=== PATIENT | female | born 1980 | race Caucasian/White ===

== ENCOUNTER → 2021-07-25 12:01 | Outpatient (CLI) | payer OTHER, MEDICAID, SELFPAY | PROVIDERS: PCP Family Medicine; Visit Provider Physician Assistant | DX: J34.89 Other specified disorders of nose and nasal sinuses (principal) | CPT/HCPCS: 87070; 87077; 87147; 87185; 87186; 87205 ==

== ENCOUNTER → 2021-08-09 08:18 | Outpatient (CLI) | payer OTHER, MEDICAID, SELFPAY ==
[2021-08-09 20:44] LABS: COVID19 - ORCAS (NP or Nasal) Negative (Negative)
== END ==
PROVIDERS: PCP Family Medicine; Visit Provider Family Medicine
DX: Z01.812 Encounter for preprocedural laboratory examination (principal)
CPT/HCPCS: C9803; U0003

== ENCOUNTER → 2021-08-21 11:35 | Outpatient (CLI) | payer OTHER, MEDICAID, SELFPAY ==
[2021-08-21 19:25] LABS: Alanine Aminotransferase 10 IU/L (<35); Albumin 4.5 g/dL (3.5-5.0); Albumin Globulin Ratio 1.6 (1.0-2.8); Alkaline Phosphatase 38 U/L (38-126); Aspartate Aminotransferase 18 IU/L (14-36); Bilirubin Total 0.3 mg/dL (0.2-1.3); Blood Urea Nitrogen 9 mg/dL (7-17); Calcium 9.7 mg/dL (8.4-10.2); Carbon Dioxide 33 mmol/L (22-32); Chloride 103 mmol/L (98-107); Estimated Glomerular Filt Rate > 60.0 mL/min (>60); Globulin 2.9 g/dL (1.7-4.1); Glucose 83 mg/dL (70-100); HEMOLYSIS < 15 (0-50); Potassium 4.2 mmol/L (3.4-5.1); Sodium 142 mmol/L (137-145); Total Protein 7.4 g/dL (6.3-8.2)
[2021-08-21 19:26] LABS: Add Manual Diff / Slide Review NO; Basophils Absolute Auto 0 /uL (0-100); Eosinophils Absolute Auto 200 /uL (0-450); Eosinophils Percent Auto 4.9 % (2-4); Hematocrit 40.2 % (36-46); Hemoglobin 13.4 g/dL (12.0-16.0); Lymphocytes Absolute Auto 2100 /uL (1100-4500); Lymphocytes Percent Auto 44.5 % (25-40); Mean Corpuscular HGB Conc 33.3 % (30-36); Mean Corpuscular Hemoglobin 29.3 PG (26-34); Mean Corpuscular Volume 88.1 fL (80-100); Monocytes Absolute Auto 400 /uL (0-900); Monocytes Percent Auto 9.1 % (3-14); Neutrophils Absolute Auto 1900 /uL (1500-7000); Neutrophils Percent Auto 40.5 % (50-75); Platelet Count 305 X10^3/uL (150-400); Red Blood Cell Count 4.56 X10^6/uL (4.0-5.2); Red Cell Distribution Width 13.1 % (11.6-14.8); White Blood Cell Count 4.6 X10^3/uL (4.5-11.0)
[2021-08-21 19:29] LABS: C-Reactive Protein Quant < 0.5 mg/dL (<1.0)
[2021-08-21 19:41] LABS: Vitamin D 25 Hydroxy (D3) 38.2 ng/mL (30.0-100.0)
[2021-08-21 20:06] LABS: HIV 1 & 2 Ab/Ag 4th Gen Combo NEGATIVE (NEGATIVE)
[2021-08-21 20:10] LABS: Erythrocyte Sedimentation Rate 10 MM/HR (0-20)
== END ==
PROVIDERS: Internal Medicine Rheumatology; PCP Family Medicine; Visit Provider Physician Assistant
DX: J32.9 Chronic sinusitis, unspecified (principal); L40.50 Arthropathic psoriasis, unspecified; Z11.3 Encounter for screening for infections with a predominantly sexual mode of transmission; Z86.2 Personal history of diseases of the blood and blood-forming organs and certain disorders involving the immune mechanism
CPT/HCPCS: 80053; 82306; 85025; 85651; 86140; 87389

== ENCOUNTER → 2021-08-30 15:39 | Outpatient (CLI) | payer OTHER, MEDICAID, SELFPAY ==
--- NOTE | 2021-08-30 | DI.CT.S_ITS ---
PROCEDURE: CT SINUS SCREEN WO CON INDICATIONS: Other headache syndrome TECHNIQUE: Noncontrast 3.0 mm axial images acquired from the frontal sinuses to the mid-sella, with coronal and sagittal reformats. For radiation dose reduction, the following was used: automated exposure control, adjustment of mA and/or kV according to patient size. COMPARISON: None. FINDINGS: Image quality: Excellent. Maxillary Sinuses: No bony remodeling or destruction. Sinuses are clear. Ethmoid Air Cells: No bony remodeling or destruction. Sinuses are clear. Sphenoid Sinuses: No bony remodeling or destruction. Sinuses are clear. Frontal Sinuses: No bony remodeling or destruction. Sinuses are clear. Ostiomeatal Complexes: Ostiomeatal complexes are patent. No Kaitlynn cells. Miscellaneous: Visualized intra-orbital contents are normal. No ken bullosa or paradoxical turbinate curvature. No nasal septal deviation. IMPRESSION: No significant active paranasal sinus disease is seen. Dictated by: Sergio Snow M.D. on 08/30/2021 at 15:16 Approved by: Sergio Snow M.D. on 08/30/2021 at 15:17
== END ==
PROVIDERS: PCP Family Medicine; Referring Provider Otolaryngology; Visit Provider Otolaryngology
DX: G44.89 Other headache syndrome (principal)
CPT/HCPCS: 70486

== ENCOUNTER → 2021-10-16 12:07 | Outpatient (CLI) | payer OTHER, MEDICAID, SELFPAY ==
--- NOTE | 2021-10-16 12:08 | DI.CT.S_ITS ---
PROCEDURE: CT HEAD/BRAIN WO CON INDICATIONS: CHRONIC PROGRESSIVE HEADACHE TECHNIQUE: Noncontrast 4.5 mm thick angled axial sections acquired from the foramen magnum to the vertex, with coronal and sagittal reformats. For radiation dose reduction, the following was used: automated exposure control, adjustment of mA and/or kV according to patient size. COMPARISON: None. FINDINGS: Image quality: Excellent. CSF spaces: Basal cisterns are patent. No extra-axial fluid collections. Ventricles are normal in size and shape. Brain: No midline shift. No intracranial masses or hemorrhage. Valencia-white matter interface is normal. Skull and face: Calvarium and visualized facial bones are intact, without suspicious lesions. Sinuses: Visualized sinuses and mastoids are clear. IMPRESSION: Normal head CT. Dictated by: Reza Crain M.D. on 10/16/2021 at 13:20 Approved by: Reza Crain M.D. on 10/16/2021 at 13:21
== END ==
PROVIDERS: PCP Family Medicine; Referring Provider Family Medicine; Visit Provider Family Medicine
DX: R51.9 Headache, unspecified (principal); G89.29 Other chronic pain
CPT/HCPCS: 70450

== ENCOUNTER → 2022-01-17 09:05 | Outpatient (CLI) | payer OTHER, MEDICAID, SELFPAY | PROVIDERS: PCP Family Medicine; Visit Provider Physician Assistant | DX: L98.9 Disorder of the skin and subcutaneous tissue, unspecified (principal) | CPT/HCPCS: 87070; 87075; 87147; 87205 ==

== ENCOUNTER → 2022-04-15 11:54 | Outpatient (CLI) | payer OTHER, MEDICAID, SELFPAY ==
[2022-04-15 20:39] LABS: Add Manual Diff / Slide Review NO; Basophils Absolute Auto 0 /uL (0-100); Basophils Percent Auto 0.7 % (0-2); Eosinophils Absolute Auto 200 /uL (0-450); Eosinophils Percent Auto 2.6 % (2-4); Hematocrit 39.6 % (36-46); Hemoglobin 13.3 g/dL (12.0-16.0); Lymphocytes Absolute Auto 2000 /uL (1100-4500); Lymphocytes Percent Auto 34.7 % (25-40); Mean Corpuscular HGB Conc 33.5 % (30-36); Mean Corpuscular Hemoglobin 29.2 PG (26-34); Monocytes Absolute Auto 600 /uL (0-900); Neutrophils Absolute Auto 3000 /uL (1500-7000); Platelet Count 256 X10^3/uL (150-400); Red Blood Cell Count 4.55 X10^6/uL (4.0-5.2); Red Cell Distribution Width 13.8 % (11.6-14.8); White Blood Cell Count 5.8 X10^3/uL (4.5-11.0)
[2022-04-15 23:33] LABS: Vitamin B12 303 pg/mL (239-931)
== END ==
PROVIDERS: PCP Family Medicine; Visit Provider Physician Assistant
DX: G62.9 Polyneuropathy, unspecified (principal); Z86.2 Personal history of diseases of the blood and blood-forming organs and certain disorders involving the immune mechanism
CPT/HCPCS: 82607; 85025

== ENCOUNTER → 2022-06-26 08:00 | Outpatient (CLI) | payer OTHER, MEDICAID, SELFPAY ==
[2022-06-28 11:46] LABS: Candida species Negative (Negative); Gardnerella vaginalis Positive (Negative); Trichomoas vaginalis Negative (Negative)
== END ==
PROVIDERS: PCP Physician Assistant; Visit Provider Physician Assistant
DX: N89.8 Other specified noninflammatory disorders of vagina (principal)
CPT/HCPCS: 87480; 87510; 87660

== ENCOUNTER → 2022-09-15 10:27 | Outpatient (CLI) | payer OTHER, MEDICAID, SELFPAY | PROVIDERS: PCP Physician Assistant; Visit Provider Physician Assistant | DX: B00.9 Herpesviral infection, unspecified (principal); N89.8 Other specified noninflammatory disorders of vagina; N94.9 Unspecified condition associated with female genital organs and menstrual cycle | CPT/HCPCS: 87491; 87529; 87591; 87661; 87798; 87801 ==

== ENCOUNTER 2022-11-03 06:51 | Day surgery (SDC) | payer OTHER, MEDICAID, SELFPAY ==
[2022-10-31 10:26] VITALS: BMI 21.7
[2022-11-03] MEDS: LACTATED RINGERS 1,000 ML 42 ML IV (07:20)
[2022-11-03 07:21] VITALS: BP 130/77; PULSE 84; RESP 16; TEMP 37; O2SAT 100; BMI 21.4
--- NOTE | 2022-11-03 08:15 | PM.HP.1 ---
History of Present Illness History of Present Illness Date Patient Seen: 11/03/22 Time Patient Seen: 08:15 Chief complaint: SDC Narrative: Patient is a 42-year-old 0 who presents for carbon dioxide laser vaporization of vain 1 of the vaginal werner Patient History Medical History (Updated 10/19/22 @ 16:28 by Ele Woodson MD) Chronic headache Encounter for screening for HIV Face lesion Nasal lesion Screening for cervical cancer Screening for diabetes mellitus Screening for lipoid disorders Skin cancer screening Vaginal high risk HPV DNA test positive Vaginal irritation Family & Social History Social History: household members significant other Tobacco & Substance use: Smoking Status Never smoker alcohol intake current alcohol intake frequency holiday/special occasion Substance Use Type does not use Meds Home Medications and Allergies Allergies Allergy/AdvReac Type Severity Reaction Status Date / Time Antifungal - Imidazole Allergy Unknown irritation Verified 11/03/22 07:17 [ANTIFUNGAL - IMIDAZOLE] and rash Exam Vital Signs (past 8 hours): - 11/03/22 07:21 Temperature 98.6 F Pulse Rate 84 Respiratory Rate 16 Blood Pressure 130/77 Pulse Oximetry 100 Oxygen Delivery Method Room Air Oxygen Delivery Method Room Air Narrative Exam Narrative: HEENT: No thyromegaly, no anterior cervical or supraclavicular lymphadenopathy. Lungs:Clear to auscultation bilaterally, no wheezes. Cardiovascular: Regular rate and rhythm, no murmurs, rubs, or gallops. Abdomen: No scars. No hepatosplenomegaly. No masses palpable. External genitalia: Normal Vagina: Rough areas on the lower vaginal werner Cervix: Normal Bimanual exam: 6 Week size uterus. Mobile. No adnexal masses or tenderness Rectal: No masses. Assessment & Plan Assessment & Plan narrative: Assessment: 42-year-old 0 with Vain 1 of the lower vaginal werner Plan: Carbon dioxide laser vaporization of Vain 1 The risks, benefits, and alternatives to the procedure were explained to the patient. The risks including bleeding and infection. She understands these risks and agrees to proceed. A full par Q was held and consent form was signed. Time Spent With Patient Time with patient: less than 30 minutes Critical Care time: I spent a total of [] minutes of critical care time on this patient's care today; this time is exclusive of procedural time.
--- NOTE | 2022-11-03 08:21 | PM.PREOP ---
Pre-operative Note COVID-19 Criteria for continued procedure: Delay expected to result in less-positive ultimate med/surg outcome Interval Note History & Physical reviewed/Exam performed by Physician: Yes Changes to H&P: No H&P completed within 30 days and has changed as indicated here:: 11/03/22
--- NOTE | 2022-11-03 08:52 | SUR.OPER ---
Lithotomy on padded OR bed, head on pillow, arms secured on padded arm boards at <90 degrees abduction. Legs secured in padded yellow fins stirrups.
[2022-11-03] MEDS: BUPIVACAINE 0.5% W/ EPI (PF) 30 ML VIAL INJ (09:01)
[2022-11-03] MEDS: SILVER SULFADIAZINE 1% CREAM 25 GM 1 APPLIC TOP (09:07)
--- NOTE | 2022-11-03 09:09 | PM.GYNOP.1 ---
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 Closure Type: not applicable Specimen(s): none Estimated blood loss (mL): 5 Procedure in detail: After informed consent was obtained, the patient was taken to the operating room where she was placed in the dorsal supine position. After adequate LMA general anesthesia was achieved, she was prepped and draped in the usual sterile fashion. A time-out was performed. An exam under anesthesia was performed showing raised lesions, 2 cm across, just inside the introitus on both sides. A plastic coated bivalve speculum was placed into the vagina. Using a 4 mm spot on intermittent pulse, the vain 1 lesions were vaporized. There was a small amount of oozing. Pressure was held for hemostasis. The speculum was removed from the vagina. Sponge, lap, and instrument counts were correct x2. The patient tolerated the procedure well, and was taken to PACU in stable condition. Complications: none Post-operative Condition: stable Disposition: PACU Plan for aftercare: Home after recovery
[2022-11-03 09:14] VITALS: BP 104/70; PULSE 74; RESP 18; TEMP 36.8; O2SAT 100
[2022-11-03 09:19] VITALS: BP 101/66; PULSE 71; RESP 14; O2SAT 100
--- NOTE | 2022-11-03 09:23 | SUR.OPER ---
Patients glasses placed in black glass case with patient label. Brought with pt to OR then to PACU. See CO2 laser sheet handwritten sheet filled by Jaclyn cervantes for laser settings.
[2022-11-03 09:25] VITALS: BP 98/65; PULSE 74; RESP 13; O2SAT 100
[2022-11-03 09:30] VITALS: BP 101/64; PULSE 69; RESP 11; TEMP 36.5; O2SAT 100
[2022-11-03 09:34] VITALS: BP 102/68; PULSE 68; RESP 11; O2SAT 100
== END 2022-11-03 09:55 | disposition home or self-care (01) ==
PROVIDERS: PCP Physician Assistant; Referring Provider Obstetrics & Gynecology; Visit Provider Obstetrics & Gynecology
PROC: (CPT 57061; principal; 2022-11-03 07:45)
DX: N89.0 Mild vaginal dysplasia (principal)
CPT/HCPCS: 57061; 81025; J1100; J1885; J2250; J2405; J2704; J3010

== ENCOUNTER → 2022-12-01 16:15 | Outpatient (CLI) | payer OTHER, MEDICAID, SELFPAY ==
--- NOTE | 2022-12-01 16:16 | DI.MRI.S_ITS ---
PROCEDURE: MR HEAD/BRAIN WO CON INDICATIONS: double vision, headache, vision change TECHNIQUE: Noncontrast axial T1 spin echo, axial T2 fast spin echo, sagittal and axial FLAIR, coronal T2 fast spin echo, axial gradient echo, axial diffusion and ADC through the brain. COMPARISON: None. FINDINGS: Image quality: Excellent. CSF Spaces: Basal cisterns are patent. No extra-axial fluid collections. Ventricles are normal in size and shape. Brain: No intracranial masses or hemorrhage. Valencia/white matter interface is normal. Brainstem appears normal. Diffusion-weighted images demonstrate no acute ischemic insult. No chronic ischemic insults. Normal intravascular flow voids are present. Skull and face: Calvarium has normal marrow signal. Orbits appear normal. Sinuses: Sinuses and mastoids are clear. IMPRESSION: Normal MRI of the brain Approved by: Burt Schwartz M.D. on 12/01/2022 at 18:14
== END ==
PROVIDERS: PCP Physician Assistant; Referring Provider Family Medicine; Visit Provider Family Medicine
DX: H53.2 Diplopia (principal); H53.9 Unspecified visual disturbance; R42 Dizziness and giddiness; R51.9 Headache, unspecified
CPT/HCPCS: 70551

== ENCOUNTER → 2022-12-08 14:35 | Outpatient (CLI) | payer OTHER, MEDICAID, SELFPAY ==
[2022-12-08 19:23] LABS: BUN Creatinine Ratio 17.3 (6-22); Blood Urea Nitrogen 13 mg/dL (7-17); Calcium 9.3 mg/dL (8.4-10.2); Carbon Dioxide 31 mmol/L (22-32); Chloride 100 mmol/L (98-107); Estimated Glomerular Filt Rate > 60 mL/min (>60); Glucose 82 mg/dL (70-100); HEMOLYSIS < 15 (0-50); Sodium 138 mmol/L (137-145)
[2022-12-08 19:25] LABS: Add Manual Diff / Slide Review NO; Basophils Absolute Auto 100 /uL (0-100); Basophils Percent Auto 0.7 % (0-2); Eosinophils Absolute Auto 100 /uL (0-450); Eosinophils Percent Auto 1.5 % (2-4); Hematocrit 39.6 % (36-46); Hemoglobin 13.4 g/dL (12.0-16.0); Lymphocytes Absolute Auto 2500 /uL (1100-4500); Lymphocytes Percent Auto 26.3 % (25-40); Mean Corpuscular HGB Conc 33.8 % (30-36); Mean Corpuscular Hemoglobin 29.4 PG (26-34); Monocytes Absolute Auto 800 /uL (0-900); Monocytes Percent Auto 8.2 % (3-14); Neutrophils Absolute Auto 6000 /uL (1500-7000); Neutrophils Percent Auto 63.3 % (50-75); Platelet Count 202 X10^3/uL (150-400); Red Blood Cell Count 4.56 X10^6/uL (4.0-5.2); Red Cell Distribution Width 13.6 % (11.6-14.8); White Blood Cell Count 9.4 X10^3/uL (4.5-11.0)
[2022-12-08 19:40] LABS: Erythrocyte Sedimentation Rate 7 MM/HR (0-20)
[2022-12-08 19:50] LABS: TSH w/ Reflex to FT4 1.18 uIU/mL (0.47-4.68)
[2022-12-08 20:11] LABS: Vitamin B12 789 pg/mL (239-931)
== END ==
PROVIDERS: PCP Physician Assistant; Visit Provider Family Medicine
DX: G89.29 Other chronic pain (principal); H53.9 Unspecified visual disturbance; H53.2 Diplopia; L40.50 Arthropathic psoriasis, unspecified; R42 Dizziness and giddiness; R51.9 Headache, unspecified
CPT/HCPCS: 80048; 82607; 84443; 85025; 85651

== ENCOUNTER → 2023-02-17 15:45 | Outpatient (CLI) | payer OTHER, MEDICAID, SELFPAY | PROVIDERS: PCP Physician Assistant; Visit Provider Physician Assistant | DX: N89.8 Other specified noninflammatory disorders of vagina (principal) | CPT/HCPCS: 81002; 87491; 87591; 87661 ==

== ENCOUNTER → 2023-03-04 13:15 | Outpatient (CLI) | payer OTHER, MEDICAID, SELFPAY ==
[2023-03-05 16:30] LABS: HIV 1 & 2 Ab/Ag 4th Gen Combo NEGATIVE (NEGATIVE); Hep C Virus Ab w/Reflex Quant NEGATIVE s/c (NEGATIVE)
[2023-03-06 08:44] LABS: HSV 2 IGG AB < 0.91 index (0.00-0.90); HSV1IGG 2.58 index (0.00-0.90); RPR Screen Non Reactive (Non Reactive)
== END ==
PROVIDERS: PCP Physician Assistant; Visit Provider Physician Assistant
DX: Z11.3 Encounter for screening for infections with a predominantly sexual mode of transmission (principal)
CPT/HCPCS: 86592; 86695; 86696; 86803; 87389

== ENCOUNTER → 2023-04-29 11:26 | Outpatient (CLI) | payer OTHER, MEDICAID, SELFPAY | PROVIDERS: PCP Physician Assistant; Visit Provider Physician Assistant | DX: J02.9 Acute pharyngitis, unspecified (principal) | CPT/HCPCS: 87070; 87880 ==

== ENCOUNTER → 2024-07-19 09:58 | Outpatient (CLI) | payer OTHER, MEDICAID, SELFPAY ==
[2024-07-19 19:01] LABS: Add Manual Diff / Slide Review NO; Basophils Absolute Auto 0 /uL (0-100); Basophils Percent Auto 0.6 % (0-2); Eosinophils Absolute Auto 200 /uL (0-450); Eosinophils Percent Auto 2.7 % (2-4); Hematocrit 40.8 % (36-46); Hemoglobin 13.5 g/dL (12.0-16.0); Lymphocytes Absolute Auto 1900 /uL (1100-4500); Lymphocytes Percent Auto 30.6 % (25-40); Mean Corpuscular HGB Conc 33.1 % (30-36); Mean Corpuscular Hemoglobin 29.1 PG (26-34); Mean Corpuscular Volume 87.8 fL (80-100); Monocytes Absolute Auto 600 /uL (0-900); Monocytes Percent Auto 10.3 % (3-14); Neutrophils Absolute Auto 3400 /uL (1500-7000); Neutrophils Percent Auto 55.8 % (50-75); Platelet Count 196 X10^3/uL (150-400); Red Blood Cell Count 4.64 X10^6/uL (4.0-5.2); Red Cell Distribution Width 13.6 % (11.6-14.8); White Blood Cell Count 6.1 X10^3/uL (4.5-11.0)
[2024-07-19 19:16] LABS: BUN Creatinine Ratio 16.5 (6-22); Blood Urea Nitrogen 13 mg/dL (7-17); Calcium 9.3 mg/dL (8.4-10.2); Carbon Dioxide 28 mmol/L (22-32); Chloride 102 mmol/L (98-107); Cholesterol 221 mg/dL (140-199); Estimated Glomerular Filt Rate > 60 mL/min (>60); Glucose 91 mg/dL (70-100); HDL Cholesterol 58 mg/dL (40-60); HEMOLYSIS 15 (0-50); LDL Cholesterol Calculated 150 mg/dL (<100); Potassium 4.3 mmol/L (3.4-5.1); Sodium 135 mmol/L (137-145); Triglycerides 63 mg/dL (35-150)
[2024-07-19 20:56] LABS: Urine N gonorrhoeae NOT DETECTED
[2024-07-19 21:14] LABS: Urine Chlamydia NOT DETECTED
[2024-07-20 16:11] LABS: HIV 1 & 2 Ab/Ag 4th Gen Combo NEGATIVE (NEGATIVE)
[2024-07-21 04:10] LABS: RPR Screen Non Reactive (Non Reactive)
== END ==
PROVIDERS: PCP Family Medicine; Visit Provider Family Medicine
DX: Z13.1 Encounter for screening for diabetes mellitus (principal); Z13.6 Encounter for screening for cardiovascular disorders; L40.50 Arthropathic psoriasis, unspecified; E78.2 Mixed hyperlipidemia; F32.9 Major depressive disorder, single episode, unspecified; Z20.2 Contact with and (suspected) exposure to infections with a predominantly sexual mode of transmission
CPT/HCPCS: 80048; 80061; 85025; 86592; 87389; 87491; 87591

== ENCOUNTER → 2024-10-14 10:56 | Outpatient (CLI) | payer OTHER, SELFPAY ==
[2024-10-14 18:58] LABS: Alanine Aminotransferase 18 IU/L (<35); Albumin 4.5 g/dL (3.5-5.0); Albumin Globulin Ratio 1.7 (1.0-2.8); Alkaline Phosphatase 47 U/L (38-126); Aspartate Aminotransferase 21 IU/L (14-36); BUN Creatinine Ratio 12.8 (6-22); Bilirubin Total 0.4 mg/dL (0.2-1.3); Blood Urea Nitrogen 10 mg/dL (7-17); Calcium 9.5 mg/dL (8.4-10.2); Carbon Dioxide 25 mmol/L (22-32); Chloride 104 mmol/L (98-107); Cholesterol 226 mg/dL (140-199); Estimated Glomerular Filt Rate > 60 mL/min (>60); Globulin 2.7 g/dL (1.7-4.1); Glucose 93 mg/dL (70-100); HDL Cholesterol 53 mg/dL (40-60); HEMOLYSIS < 15 (0-50); LDL Cholesterol Calculated 149 mg/dL (<100); Potassium 4.3 mmol/L (3.4-5.1); Sodium 135 mmol/L (137-145); Total Protein 7.2 g/dL (6.3-8.2); Triglycerides 118 mg/dL (35-150)
== END ==
PROVIDERS: PCP Family Medicine; Visit Provider Family Medicine
DX: E78.2 Mixed hyperlipidemia (principal); Z20.2 Contact with and (suspected) exposure to infections with a predominantly sexual mode of transmission; Z79.899 Other long term (current) drug therapy
CPT/HCPCS: 80053; 80061; 84402; 84403; 87340; 87389

== ENCOUNTER → 2024-12-22 10:49 | Outpatient (CLI) | payer OTHER, SELFPAY ==
[2024-12-22 19:38] LABS: C-Reactive Protein Quant < 0.5 mg/dL (<1.0)
[2024-12-22 20:06] LABS: TSH w/ Reflex to FT4 0.96 uIU/mL (0.47-4.68)
[2024-12-22 20:15] LABS: HIV 1 & 2 Ab/Ag 4th Gen Combo NEGATIVE (NEGATIVE)
[2024-12-22 20:37] LABS: Erythrocyte Sedimentation Rate 6 MM/HR (0-20)
[2024-12-22 20:42] LABS: Folate 7.8 ng/mL (2.76-20.0); Vitamin B12 378 pg/mL (239-931)
[2024-12-22 20:55] LABS: Urine N gonorrhoeae NOT DETECTED
[2024-12-22 21:03] LABS: Urine Chlamydia NOT DETECTED
[2024-12-24 03:08] LABS: RPR Screen Non Reactive (Non Reactive)
[2024-12-26 12:39] LABS: Albumin 4.1 g/dL (2.9-4.4); Alpha 1 Globulin 0.2 g/dL (0.0-0.4); Alpha 2 Globulin 0.8 g/dL (0.4-1.0); Gamma Globulin 1.1 g/dL (0.4-1.8); Protein, Total 7.1 g/dL (6.0-8.5)
[2024-12-27 08:11] LABS: ANA Screen, IFA Negative (.)
[2025-01-03 07:41] LABS: Percent Free Testosterone 3.23 % (0.50-2.80); Testosterone Free 13.64 ng/dL (0.10-0.85); Testosterone Total 422.4 ng/dL (.)
== END ==
PROVIDERS: PCP Family Medicine; Visit Provider Family Medicine
DX: Z20.2 Contact with and (suspected) exposure to infections with a predominantly sexual mode of transmission (principal); G62.0 Drug-induced polyneuropathy; T37.8X5A Adverse effect of other specified systemic anti-infectives and antiparasitics, initial encounter; Z51.81 Encounter for therapeutic drug level monitoring; Z79.890 Hormone replacement therapy
CPT/HCPCS: 82607; 82746; 84155; 84165; 84402; 84403; 84443; 85651; 86038; 86140; 86592; 87389; 87491; 87591

== ENCOUNTER → 2025-06-07 13:30 | Outpatient (CLI) | payer OTHER, SELFPAY ==
[2025-06-07 20:18] LABS: Add Manual Diff / Slide Review NO; Hematocrit 47.8 % (36-46); Hemoglobin 16.0 g/dL (12.0-16.0); Lymphocytes Absolute Auto 2000 /uL (1100-4500); Mean Corpuscular HGB Conc 33.4 % (30-36); Mean Corpuscular Hemoglobin 29.3 PG (26-34); Mean Corpuscular Volume 87.8 fL (80-100); Platelet Count 268 X10^3/uL (150-400)
[2025-06-07 20:29] LABS: Blood Urea Nitrogen 17 mg/dL (7-17); Calcium 9.6 mg/dL (8.4-10.2); Carbon Dioxide 23 mmol/L (22-32); Chloride 103 mmol/L (98-107); Estimated Glomerular Filt Rate > 60 mL/min (>60); Glucose 117 mg/dL (70-99); HEMOLYSIS 25 (0-50); Potassium 4.5 mmol/L (3.4-5.1); Sodium 138 mmol/L (137-145)
== END ==
PROVIDERS: PCP Family Medicine; Visit Provider Physician Assistant Medical
DX: R10.84 Generalized abdominal pain (principal); R14.0 Abdominal distension (gaseous); R10.9 Unspecified abdominal pain; Z79.899 Other long term (current) drug therapy; R19.8 Other specified symptoms and signs involving the digestive system and abdomen; Z51.81 Encounter for therapeutic drug level monitoring; Z79.890 Hormone replacement therapy
CPT/HCPCS: 80048; 84402; 84403; 85025

== ENCOUNTER → 2025-06-13 09:30 | Outpatient (CLI) | payer OTHER, SELFPAY ==
[2025-06-17 12:08] LABS: Calprotectin, Stool 6 ug/g (0-120)
== END ==
PROVIDERS: PCP Family Medicine; Visit Provider Family Medicine
DX: R14.0 Abdominal distension (gaseous) (principal); R10.9 Unspecified abdominal pain
CPT/HCPCS: 83993

== ENCOUNTER → 2025-06-21 13:08 | Outpatient (CLI) | payer OTHER, SELFPAY | PROVIDERS: PCP Family Medicine; Visit Provider Family Medicine | DX: R14.0 Abdominal distension (gaseous) (principal); R10.9 Unspecified abdominal pain | CPT/HCPCS: 83516; 86003 ==

== ENCOUNTER → 2025-06-28 14:20 | Outpatient (CLI) | payer OTHER, SELFPAY | PROVIDERS: PCP Family Medicine; Visit Provider Physician Assistant | DX: R30.0 Dysuria (principal); R82.90 Unspecified abnormal findings in urine; Z87.440 Personal history of urinary (tract) infections | CPT/HCPCS: 87077; 87086; 87186 ==